=== PATIENT | female | born 1955 | race Caucasian/White ===

== ENCOUNTER 2018-11-06 12:43 | Emergency (ER) | payer BC, OTHER ==
--- NOTE | 2018-11-06 12:44 | PDOC ---
History of Present Illness - General Chief Complaint: Wheezing Stated Complaint: WHEEZING Time Seen by Provider: 11/06/18 12:44 History Source: Patient Exam Limitations: No Limitations - History of Present Illness Initial Comments: 11/06/18 13:15 HPI 63 YOF with h/o NIDDM, GERD, asthma, disc herniation presenting with wheezing x 1 week. She states she started experiencing nonproductive cough and nasal congestion x 1 week ago, progressed to intermittent wheezing, chest tightness with cough/breathing and post nasal drip. Her asthma is controlled with advair; she has been using albuterol inhaler several times a day x several days for her sx. No new allergic/environmental exposures Denies fever, chills, palpitation, dizziness, weakness, N, V, D, abdominal pain , bladder and bowel problems, leg swelling, No travel. No new changes in medications. Compliant with her glipizide, metformin. 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 Works as social work coordinator Allergies: Erythromycin, penicillin, sulfur PMD: Dr Mic SINGH Constitutional: no fevers or chills. HEENT: no headache or dizziness. +sinus congestion, post nasal drip. No sore throat or ear pain. No difficulty swallowing CVS: no cp or syncope. +chest tightness Resp: +cough. No sob, hemoptysis Gastrointestinal: no abdominal pain, nausea or vomiting. MUSCULOSKELETAL: No joint pain and swelling. No neck or back pain. No myalgias. SKIN: no redness or skin changes, no discharge, no rash. No wounds. Hematologic: no easy bruising/bleeding. NEUROLOGIC: No headache, dizziness, LOC or altered mental status. No weakness, numbness or tingling. Allergic/Immunologic: drug allergies All other systems reviewed and negative, or as documented in HPI. PE: General: Well appearing, awake and alert, NAD. HEENT: NCAT, PERRL, EOMI, clear conjunctiva, anicteric, moist mucus membranes, clear oropharynx, no oral lesions.. Normal phonation. Neck: neck supple, FROM Resp: faint bilateral expiratory wheezing, normal and even respirations, no respiratory distress CVS: RRR, no murmurs, 2+ peripheral pulses throughout, no peripheral edema Abdomen: soft, NTND, no peritoneal signs. Back: nontender, normal inspection and ROM MSK: no edema, TINAJERO x4, ROM intact. No clubbing or cyanosis. normal bulk and tone. Extremities: no calf tenderness Neuro: alert, oriented appropriately; no focal neurologic deficits Skin: warm and well perfused, cap refill <2 sec, normal color 11/06/18 13:52 Past History - Past Medical History Allergies/Adverse Reactions: Allergies Allergy/AdvReac Type Severity Reaction Status Date / Time erythromycin base Allergy Verified 07/03/16 10:43 Penicillins Allergy Verified 07/03/16 10:43 Sulfa (Sulfonamide Allergy Verified 07/03/16 10:43 Antibiotics) Home Medications: Ambulatory Orders Albuterol 0.083% Nebulizer Leilani [Ventolin 0.083% Nebulizer Soln -] 1 neb NEB Q4H PRN #50 vial 11/06/18 Albuterol Sulfate Inhaler - [Ventolin Hfa Inhaler -] 1 - 2 inh PO QID 11/06/18 Glipizide 5 mg PO BID 11/06/18 Metformin HCl [Glucophage] 1,000 mg PO BID 11/06/18 Nebulizer [Aeroeclipse II] 1 each ONCE #1 each 11/06/18 Prednisone [Prednisone 50 MG TABLETS] 50 mg PO DAILY #3 tablet 11/06/18 Ranitidine [Zantac -] 300 mg PO BID 11/06/18 - Suicide/Smoking/Psychosocial Hx Smoking History: Never smoked Hx Alcohol Use: No Drug/Substance Use Hx: No Medical Decision Making - Medical Decision Making 11/06/18 13:15 hpi as documented., VS reviewed wnl ddx. bronchitis, asthma, pna, viral syndrome, allergies no focal findings on lung exam. no systemic sx, no fevers and no hypoxia faint wheezing b/l, no respiratory distress. likely asthma flare due to viral illness vs sinusitis vs PND/bronchitis defer cxr now, no focal lung findings or hypoxia or respiratory distress. duoneb x1, prednisone x1 and x 3 day course additionally. cautioned pt on prednisone, as she has NIDDM. however, she has received in the past with minimal side effects. no insulin use. compliant with drugs and meds and diet. told to check her sugars, with 3 day course, unlikely to precipitate serious effects, such as dka or hhs and told to check for side effects related to steroid use. Pt informed of my clinical impression, treatment recommendations and disposition plan. All questions answered to patient's satisfaction and expressed understanding and comfort with this. Reasons for returning to the ED sooner discussed with the patient otherwise, follow up with primary care physician. At the time of discharge, the patient is alert, clinically improved, tolerating po and verbalizes understanding of instructions. Patient does not suffer from an acute life-threatening medical condition at this time she is safe for outpatient follow-up. 11/06/18 13:22 *DC/Admit/Observation/Transfer Diagnosis at time of Disposition: Asthma, Wheezing, Post-nasal drip - Discharge Dispostion Disposition: HOME Condition at time of disposition: Improved Decision to Admit order: No - Prescriptions Prescriptions: Albuterol 0.083% Nebulizer Leilani [Ventolin 0.083% Nebulizer Soln -] 1 neb NEB Q4H PRN #50 vial PRN Reason: Wheezing Nebulizer [Aeroeclipse II] 1 each MC ONCE #1 each Prednisone [Prednisone 50 MG TABLETS] 50 mg PO DAILY #3 tablet - Referrals Referrals: Isamar Haile [Non Staff, Medical] - - Patient Instructions Printed Discharge Instructions: DI for Asthma -- Adult, DI for Nasal Congestion , Diet High in Fruits and Vegetables May Reduce Asthma Exacerbations Additional Instructions: salt water gargles and warm lemon tea is appropriate as well for soothing qualities for sore throat/cough. minimize spread of infection given contagious nature, and cover your mouth and wash your hands adequately with soap and water. Stay well hydrated and rest. May use the albuterol inhaler every 4-6 hours as needed for cough and breathing to clear up your airways. Return precautions include respiratory distress, difficulty breathing, chest pain, lethargy, confusion, dehydration, high fevers or pain. - Post Discharge Activity Forms/Work/School Notes: Back to Work
[2018-11-06 13:05] VITALS: BP 181/90; PULSE 73; TEMP 97.8; BMI 30.7
[2018-11-06] MEDS ORDERED: ALBUTEROL SO4 2.5/IPRATROPIUM 0.5 INH SOL 3 ML VIAL.NEB. NEB ONE ×2 (13:10→13:21)
[2018-11-06] MEDS ORDERED: predniSONE 20 MG TABLET (UD) PO ONE (13:10)
[2018-11-06] MEDS ORDERED: predniSONE 10 MG TABLET (UD) ONE (13:19)
[2018-11-06] MEDS ORDERED: predniSONE 20 MG TABLET (UD) ONE (13:20)
== END 2018-11-06 13:56 | disposition home or self-care (01) ==
LOC: FER 12:43
PROC: 3E0F7GC Introduction of Other Therapeutic Substance into Respiratory Tract, Via Natural or Artificial Opening (ICD-10-PCS; principal; 2018-11-06)
DX: J45.909 Unspecified asthma, uncomplicated (principal); R06.2 Wheezing; R09.82 Postnasal drip
CPT/HCPCS: 99281-25